=== PATIENT | female | born 1955 ===

== ENCOUNTER 2019-07-26 11:32 | Emergency (ER) | payer OTHER, SELFPAY ==
[2019-07-26 11:35] VITALS: BMI 23.3
--- NOTE | 2019-07-26 11:39 | DI.RAD.S_ITS ---
PROCEDURE: XR CHEST 1V INDICATIONS: chest pain TECHNIQUE: One view of the chest was acquired. COMPARISON: None. FINDINGS: Surgical changes and devices: None. Lungs and pleura: Lungs are clear. No pleural effusions or pneumothorax. Mediastinum: Mediastinal contours appear normal. Heart size is normal. Bones and chest wall: No suspicious bony lesions. Overlying soft tissues appear unremarkable. IMPRESSION: No acute cardiopulmonary disease process. Dictated by: Sandi Mathews MD, PhD on 07/26/2019 at 12:10 Approved by: Sandi Mathews MD, PhD on 07/26/2019 at 12:10
--- NOTE | 2019-07-26 11:46 | ED.CHESTPAIN ---
HPI - Chest Pain General Chief Complaint: Chest Pain Stated Complaint: chest pain Time Seen by Provider: 07/26/19 11:46 Source: patient Mode of arrival: Ambulatory Limitations: no limitations History of Present Illness HPI narrative: CC: Chest pain that feels better leaning forward. HPI: The patient is a 64-year-old female who has a history of WPW status post ablation several years ago who presents to the emergency department at this time with chest pain. The patient stated that she has WPW a which was ablated in 1998. She has not had any significant tachycardia since then. The patient states that she has had a chest discomfort for the last 3 nights for which she has taken Tums without relief. When the pain seemed to travel from her right ear and jaw to the middle of her to chin she, she came into the emergency department to be evaluated. She states that she has had a sharp knife-like pain in the middle of her back between her shoulder blades that radiates anteriorly to the center of her chest. The pain is always constant varying in intensity and is almost always sharp and rarely dull or achy. She has had no significant arm discomfort shoulder discomfort. She states it is hard to describe it just hurts. She has had no fall or injury. She has never had a pulmonary embolism. She denies any significant shortness of breath but has had a mild dry unproductive cough. She denies any fever chills or sweats any belly pain nausea vomiting diarrhea. She is constipated most of the time. She does not have a history of pancreatitis. She denies that she has ever been told that she has had pericarditis but the pain is significantly relieved by leaning forward. She does not smoke cigarettes but drinks white wine daily. Related Data Home Medications Medication Instructions Recorded Confirmed Vitamin B-12 1 tab PO DAILY 07/26/19 07/26/19 estradiol 10 mcg VAGINAL DIRECTED 07/26/19 07/26/19 estradiol [Marisa] 0.0375 mg TOPICAL DIRECTED 07/26/19 07/26/19 levothyroxine 75 mcg PO DAILY 07/26/19 07/26/19 liothyronine 2.5 mcg PO DAILY 07/26/19 07/26/19 magnesium 1 tab PO DAILY 07/26/19 07/26/19 miglitol 25 - 50 mg PO TID 07/26/19 07/26/19 naltrexone 50 mg PO BID 07/26/19 07/26/19 pramlintide [SymlinPen 60] 60 mcg SUBCUT QAC 07/26/19 07/26/19 rosuvastatin 40 mg PO QPM 07/26/19 07/26/19 zonisamide 100 mg PO QAM 07/26/19 07/26/19 zonisamide 150 mg PO QPM 07/26/19 07/26/19 Previous Rx's Medication Instructions Recorded cyclobenzaprine 10 mg PO TID PRN #15 tab 07/26/19 naproxen 500 mg PO BID PRN #20 tab 07/26/19 Allergies Allergy/AdvReac Type Severity Reaction Status Date / Time levofloxacin [From Levaquin] Allergy Severe painful/itc Verified 07/26/19 11:42 hy Review of Systems Review of Systems Narrative: Her review of systems were negative except for those mentioned in the history of present illness. Patient History Social History Smoking Status: Never smoker Smoking Status: Never smoker alcohol intake frequency: 0-2 drinks per day Substance Use Type: does not use Exam Narrative Exam Narrative: PHYSICAL EXAM: CONSTITUTIONAL: Awake, Alert, Oriented, Coherent, Cooperative in NAD. Does not appear toxic or ill. HEAD: AT/NC EENT: PERRL, FROM of eyes, no discharge, no nystagmus No drainage from the ears, Tympanic membranes intact bilaterally, clear EAC Oral mucosa is moist and pink, posterior pharynx is without erythema or exudate. NECK: Supple, no obvious JVD, Trachea is midline without stridor, no palpable LN or masses. SPINE: No gross deformity, no palpable tenderness of the cervical, thoracic, lumbar or sacral spine. No CVA tenderness. THORAX: No deformity, retractions, chest wall tenderness, subcutaneous air or crepitice. There is no pain or discomfort on AP compression of the right and left chest. LUNGS: Clear with symmetrical breath sounds without respiratory distress HEART: Normal heart tones, regular rhythm and rate without murmur. ABDOMEN: Soft, non-tender, normal bowel sounds without guarding, rebound, rigidity or palpable mass EXTREMITIES: No edema, cyanosis, deformity or tenderness. SKIN: No rash, bruising, petechiae or purpura. NEURO: Awake, alert, oriented, conversive, cranial nerves II-XII are symmetrical and normal, moves all 4 extremities and is ambulatory Initial Vital Signs Initial Vital Signs: Vital Signs Pulse Rate 61 07/26/19 12:00 Respiratory Rate 22 07/26/19 12:00 Blood Pressure 140/67 07/26/19 12:00 Pulse Oximetry 100 07/26/19 12:00 Course Course Course Narrative: The patient's pain would be a rare atypical presentation of coronary heart disease. Because she has pain that originates in the middle of her back and radiates anteriorly a CT angiogram of the patient's chest has been ordered to rule out the possibility of a dissecting aortic aneurysm. This will also rule out the possibility T of a pulmonary embolism or any other infiltrates. The patient is being evaluated for all of these possible pathological processes including pancreatitis. 1307: The patient's single-view chest x-ray reveals no acute cardiopulmonary pathology. The patient's CT angiogram has been completed but results remain pending. 1340: The patient's CT angiogram of her chest reveals: 1. No acute aortic aneurysm, dissection, syndrome. 2. No central pulmonary embolism 3. No acute airspace opacity. 1400: The patient was feeling much improved and only received aspirin. She declined the Toradol for her pain and discomfort. She was informed of the CT results. A repeat troponin has been ordered on the patient. The patient's ESR and CRP are not elevated. 1442: The patient's repeat troponin is negative. The patient is in no acute distress. I discussed the options with the patient. She was advised to still see her for primary care physician and plush brusher for a possible outpatient stress test. I explained to her that I think that this is 1 of 2 things either musculoskeletal back and chest pain or a atypical presentation of indigestion heartburn. She was instructed to use a large enough volume of Gaviscon Mylanta or liquid antacid when she believes that this may be indigestion heartburn. I suggested using a half to a full bathroom [place] cup full of antacid as a single attempt to neutralize the acid in her stomach. She will be prescribed Naprosyn for the pain and discomfort and cyclobenzaprine as a muscle relaxant. Orders Ordered: Discontinued Medications Aspirin (Aspirin Chew) 324 mg PO NOW ONE Stop: 07/26/19 11:40 Last Admin: 07/26/19 11:47 Dose: 324 mg Documented by: CEE Ketorolac Tromethamine (Toradol) 30 mg IV NOW ONE Stop: 07/26/19 11:46 Last Admin: 07/26/19 13:17 Dose: Not Given Documented by: SYED Vital Signs Vital signs: Vital Signs - 8 hr 07/26/19 12:00 07/26/19 12:29 07/26/19 13:58 Temperature 97.2 F L Pulse Rate 61 54 L Respiratory Rate 22 18 Blood Pressure [Right Arm] 140/67 138/71 Pulse Oximetry 100 99 MDM - Chest Pain Lab Data Result diagrams: 07/26/19 11:55 07/26/19 12:27 Labs: Lab Results 07/26/19 07/26/19 07/26/19 Range/Units 11:55 11:55 11:55 WBC 5.3 (4.5-11.0) X10^3/uL RBC 4.87 (4.0-5.2) X10^6/uL Hgb 14.7 (12.0-16.0) g/dL Hct 44.0 (36-46) % MCV 90.3 (80-100) fL MCH 30.2 (26-34) PG MCHC 33.5 (30-36) % RDW 12.8 (11.6-14.8) % Plt Count 222 (150-400) X10^3/uL Neut % (Auto) 51.3 (50-75) % Lymph % (Auto) 34.9 (25-40) % [place] % (Auto) 9.1 (3-14) % Eos % (Auto) 4.0 (2-4) % Baso % (Auto) 0.7 (0-2) % Neut # (Auto) 2700 (2537-9646) /uL Lymph # (Auto) 1800 (7633-6703) /uL [place] # (Auto) 500 (0-900) /uL Eos # (Auto) 200 (0-450) /uL Baso # (Auto) 0 (0-100) /uL ESR 3 (0-20) MM/HR PT 10.4 (10.1-12.7) SECONDS INR 0.9 (0.9-1.3) APTT 32 (26.4-36.2) SECONDS Sodium (137-145) mmol/L Potassium (3.4-5.1) mmol/L Chloride (98-107) mmol/L Carbon Dioxide (22-32) mmol/L BUN (7-17) mg/dL Creatinine (0.52-1.04) mg/dL Estimated GFR (>60) mL/min BUN/Creatinine Ratio (6-22) Glucose (80-110) mg/dL Calcium (8.4-10.2) mg/dL Magnesium (1.6-2.3) mg/dL Total Bilirubin (0.2-1.3) mg/dL AST (14-36) IU/L ALT (<35) IU/L Alkaline Phosphatase (38-126) U/L Total Creatine Kinase (30-135) U/L CK-MB (CK-2) (<2.37) ng/mL CK-MB (CK-2) Rel Index (1.5-5.0) % Troponin I (0.01-0.034) ng/mL C-Reactive Protein (<1.0) mg/dL Total Protein (6.3-8.2) g/dL Albumin (3.5-5.0) g/dL Globulin (1.7-4.1) g/dL Albumin/Globulin Ratio (1.0-2.8) Lipase (23-300) U/L 07/26/19 07/26/19 07/26/19 Range/Units 12:21 12:27 13:58 WBC (4.5-11.0) X10^3/uL RBC (4.0-5.2) X10^6/uL Hgb (12.0-16.0) g/dL Hct (36-46) % MCV (80-100) fL MCH (26-34) PG MCHC (30-36) % RDW (11.6-14.8) % Plt Count (150-400) X10^3/uL Neut % (Auto) (50-75) % Lymph % (Auto) (25-40) % [place] % (Auto) (3-14) % Eos % (Auto) (2-4) % Baso % (Auto) (0-2) % Neut # (Auto) (3279-4409) /uL Lymph # (Auto) (6184-1151) /uL [place] # (Auto) (0-900) /uL Eos # (Auto) (0-450) /uL Baso # (Auto) (0-100) /uL ESR (0-20) MM/HR PT (10.1-12.7) SECONDS INR (0.9-1.3) APTT (26.4-36.2) SECONDS Sodium 140 (137-145) mmol/L Potassium 4.1 (3.4-5.1) mmol/L Chloride 104 (98-107) mmol/L Carbon Dioxide 26 (22-32) mmol/L BUN 21 H (7-17) mg/dL Creatinine 0.80 (0.52-1.04) mg/dL Estimated GFR > 60.0 (>60) mL/min BUN/Creatinine Ratio 26.3 H (6-22) Glucose 96 (80-110) mg/dL Calcium 9.3 (8.4-10.2) mg/dL Magnesium 2.2 (1.6-2.3) mg/dL Total Bilirubin 0.4 (0.2-1.3) mg/dL AST 34 (14-36) IU/L ALT 31 (<35) IU/L Alkaline Phosphatase 55 (38-126) U/L Total Creatine Kinase 145 H (30-135) U/L CK-MB (CK-2) 1.20 (<2.37) ng/mL CK-MB (CK-2) Rel Index 0.8 L (1.5-5.0) % Troponin I < 0.012 < 0.012 (0.01-0.034) ng/mL C-Reactive Protein < 0.5 (<1.0) mg/dL Total Protein 8.0 (6.3-8.2) g/dL Albumin 4.9 (3.5-5.0) g/dL Globulin 3.1 (1.7-4.1) g/dL Albumin/Globulin Ratio 1.6 (1.0-2.8) Lipase 119 (23-300) U/L ECG Data Attestation: I personally reviewed and interpreted this ECG as follows: Interpretation: The patient's EKG obtained on July 26 at 11:3 9:06 a.m. reveals a sinus bradycardia with ventricular rate of 58. QRS is slightly prolonged at 104 milliseconds. QTC interval and QTC are within normal limits. The patient has normal axis. The patient's EKG reveals a inverted T-wave in lead III and V1. There are no other acute diagnostic ST segment changes noted throughout her EKG. Discharge Plan Departure Patient Disposition: Home Clinical Impression: Atypical chest pain, History of Jjybw-Ihjtjqmcu-Jffqi syndrome Acute thoracic back pain Qualifiers: Back pain laterality: midline Qualified Code(s): M54.6 - Pain in thoracic spine Discharge Date/Time: 07/26/19 15:01 Instructions: DI for Angina, DI for Atypical Chest Pain, DI for Thoracic Back Pain Activity Restrictions/Additional Instructions: 1. Follow-up with your primary care physician to be referred to your plush brusher for an evaluation and possible of repeat cardiac stress test. 2. If you are having any burning discomfort or feel that this may be indigestion or heartburn take a half to a full bathroom [place] cups volume of a liquid antacid such as Gaviscon or Mylanta Maalox. You need to take a large enough volume to neutralize the acid in your stomach acutely as a 1 time dose. 3. Use the Naprosyn as prescribed 500 mg twice a day for pain and discomfort. 4. Use the cyclobenzaprine 10 mg 3 times a day as needed for persistent pain and discomfort and muscle spasms or cramps. 5. If you develop crushing chest pain that radiates into your neck jaw or shoulder and arm associated with dizziness shortness of breath feeling faint you need to repeat turned to the emergency department immediately. Prescriptions: New naproxen 500 mg tablet 500 mg PO BID PRN (Reason: pain) Qty: 20 RF: 0 cyclobenzaprine 10 mg tablet 10 mg PO TID PRN (Reason: muscle spasm) Qty: 15 RF: 0 No Action miglitol 50 mg tablet 25 - 50 mg PO TID RF: 0 naltrexone 50 mg tablet 50 mg PO BID RF: 0 liothyronine 5 mcg tablet 2.5 mcg PO DAILY RF: 0 levothyroxine 75 mcg tablet 75 mcg PO DAILY RF: 0 estradiol [Marisa] 0.0375 mg/24 hr patch semiweekly 0.0375 mg topical DIRECTED RF: 0 rosuvastatin 40 mg tablet 40 mg PO QPM RF: 0 zonisamide 50 mg capsule 100 mg PO QAM RF: 0 estradiol 10 mcg tablet 10 mcg VAGINAL DIRECTED RF: 0 Vitamin B-12 1 tab PO DAILY RF: 0 magnesium 1 tab PO DAILY RF: 0 zonisamide 50 mg capsule 150 mg PO QPM RF: 0 SymlinPen 60 1,500 mcg/1.5 mL Pen Injector 60 mcg SUBCUT QAC RF: 0
[2019-07-26] MEDS: ASPIRIN 81 MG CHEW TAB 324 MG PO (11:47)
[2019-07-26 12:00] VITALS: BP 140/67; PULSE 61; RESP 22; O2SAT 100
[2019-07-26 12:09] LABS: INR 0.9 (0.9-1.3); Prothrombin Time 10.4 SECONDS (10.1-12.7)
[2019-07-26 12:12] LABS: PTT Partial Thromboplastin Tim 32 SECONDS (26.4-36.2)
[2019-07-26 12:14] LABS: Add Manual Diff / Slide Review NO; Basophils Absolute Auto 0 /uL (0-100); Basophils Percent Auto 0.7 % (0-2); Eosinophils Absolute Auto 200 /uL (0-450); Hemoglobin 14.7 g/dL (12.0-16.0); Lymphocytes Absolute Auto 1800 /uL (1100-4500); Lymphocytes Percent Auto 34.9 % (25-40); Mean Corpuscular HGB Conc 33.5 % (30-36); Mean Corpuscular Hemoglobin 30.2 PG (26-34); Mean Corpuscular Volume 90.3 fL (80-100); Monocytes Absolute Auto 500 /uL (0-900); Monocytes Percent Auto 9.1 % (3-14); Neutrophils Absolute Auto 2700 /uL (1500-7000); Neutrophils Percent Auto 51.3 % (50-75); Platelet Count 222 X10^3/uL (150-400); Red Blood Cell Count 4.87 X10^6/uL (4.0-5.2); Red Cell Distribution Width 12.8 % (11.6-14.8); White Blood Cell Count 5.3 X10^3/uL (4.5-11.0)
[2019-07-26 12:29] VITALS: TEMP 36.2
[2019-07-26 12:31] LABS: Erythrocyte Sedimentation Rate 3 MM/HR (0-20)
[2019-07-26 12:41] LABS: Alanine Aminotransferase 31 IU/L (<35); Albumin 4.9 g/dL (3.5-5.0); Albumin Globulin Ratio 1.6 (1.0-2.8); Alkaline Phosphatase 55 U/L (38-126); Aspartate Aminotransferase 34 IU/L (14-36); BUN Creatinine Ratio 26.3 (6-22); Bilirubin Total 0.4 mg/dL (0.2-1.3); Blood Urea Nitrogen 21 mg/dL (7-17); Calcium 9.3 mg/dL (8.4-10.2); Carbon Dioxide 26 mmol/L (22-32); Chloride 104 mmol/L (98-107); Creatine Kinase 145 U/L (30-135); Estimated Glomerular Filt Rate > 60.0 mL/min (>60); Globulin 3.1 g/dL (1.7-4.1); Glucose 96 mg/dL (80-110); HEMOLYSIS < 15 (0-50); Lipase 119 U/L (23-300); Magnesium 2.2 mg/dL (1.6-2.3); Potassium 4.1 mmol/L (3.4-5.1); Sodium 140 mmol/L (137-145)
--- NOTE | 2019-07-26 12:41 | DI.CT.S_ITS ---
PROCEDURE: CT ANGIO CHEST INDICATIONS: mid posterior thoracic pain radiating to chest, r/o disectio TECHNIQUE: After the administration of intravenous contrast, 2.5 mm thick sections acquired from the lung apices to the posterior lung bases. Maximum intensity projection (MIP) oblique sagittal reformats were then acquired parallel to the aortic arch. For radiation dose reduction, the following was used: automated exposure control. COMPARISON: None. FINDINGS: Image quality: Excellent. Aorta: Aorta and great vessels are normal in size. No mural irregularity or contrast extravasation to suggest aortic injury. No central pulmonary embolism. Mediastinum: No hematomas. Heart size is normal. No pericardial effusion. No mediastinal or hilar adenopathy by size criteria. Central pulmonary arteries are normal in size. Esophagus is normal in caliber. No hiatal hernia. Lungs and pleura: No acute airspace opacities. Calcified granuloma in the left upper lobe. No pleural effusions or pneumothorax. Central and peripheral airways are patent and normal in caliber. Bones and chest wall: No axillary adenopathy by size criteria. Thyroid gland is unremarkable. No suspicious bony lesions. No vertebral body compression fractures. Abdomen: Visualized upper abdominal solid organs and bowel loops appear normal. IMPRESSION: 1. No acute aortic syndrome. 2. No central pulmonary embolism. 3. No acute airspace opacity. Dictated by: Peewee Parrish M.D. on 07/26/2019 at 13:14 Approved by: Peewee Parrish M.D. on 07/26/2019 at 13:21
[2019-07-26 12:47] LABS: C-Reactive Protein Quant < 0.5 mg/dL (<1.0)
[2019-07-26 12:53] LABS: Troponin I < 0.012 ng/mL (0.01-0.034)
[2019-07-26 12:56] LABS: CKMB % Relative Index 0.8 % (1.5-5.0)
[2019-07-26 13:58] VITALS: BP 138/71; PULSE 54; RESP 18; O2SAT 99
[2019-07-26 14:29] LABS: Troponin I < 0.012 ng/mL (0.01-0.034)
[2019-07-26 14:30] VITALS: BP 118/67; PULSE 57; RESP 16; O2SAT 100
[2019-07-26 14:58] VITALS: BP 118/67; PULSE 57; O2SAT 100
== END 2019-07-26 15:01 | disposition home or self-care (01) ==
PROVIDERS: Emergency Provider Emergency Medicine
DX: M54.6 Pain in thoracic spine (principal); R07.89 Other chest pain; Z86.79 Personal history of other diseases of the circulatory system
CPT/HCPCS: 36415; 71045; 71275; 80053; 82550; 82553; 83690; 83735; 84484; 85025; 85610; 85651; 85730; 86140; 93005; 99284; 99285; Q9967

== ENCOUNTER → 2020-08-20 09:26 | Outpatient (CLI) | payer OTHER, SELFPAY ==
[2020-08-20] MEDS: COVID-19 VACC, Ad26(JANSSEN)/PF 0.5 ML IM (09:32)
== END ==
PROVIDERS: Visit Provider Internal Medicine
DX: Z23 Encounter for immunization (principal)
CPT/HCPCS: 0031A; 91303

== ENCOUNTER → 2021-03-24 11:46 | Outpatient (CLI) | payer OTHER, SELFPAY ==
--- NOTE | 2021-03-24 11:48 | DI.MG.S_ITS ---
BILATERAL DIGITAL SCREENING MAMMOGRAM 3D/2D WITH CAD: 03/24/2021 CLINICAL: Routine screening. Family history of breast cancer. Comparison is made to exams dated: 11/11/2019 mammogram, 11/11/2019 ultrasound, 10/14/2019 mammogram, 09/19/2018 mammogram, and 07/19/2017 mammogram - outside facility. The tissue of both breasts is predominantly fatty. Current study was also evaluated with a Computer Aided Detection (CAD) system. No significant masses, calcifications, or other findings are seen in either breast. There has been no significant interval change. IMPRESSION: NEGATIVE There is no mammographic evidence of malignancy. A 1 year screening mammogram is recommended. This exam was interpreted at Station ID: [id number]. NOTE: For mammograms, a report in lay terms will be sent to the patient. Approximately 15% of breast malignancies will not be visualized mammographically. In the management of a palpable breast mass, a negative mammogram must not discourage biopsy of a clinically suspicious lesion. Electronically Signed By: Quinton Carrera M.D., jr/edwar:03/24/2021 12:49:09 letter sent: Normal Exam ACR BI-RADS Category 1: Negative [id number]
== END ==
PROVIDERS: PCP Registered Nurse; Referring Provider Obstetrics & Gynecology; Visit Provider Obstetrics & Gynecology
DX: Z12.31 Encounter for screening mammogram for malignant neoplasm of breast (principal); Z80.3 Family history of malignant neoplasm of breast
CPT/HCPCS: 77063; 77067

== ENCOUNTER → 2021-07-01 17:18 | Outpatient (CLI) | payer MEDICARE, OTHER, SELFPAY ==
--- NOTE | 2021-07-01 17:20 | DI.RAD.S_ITS ---
PROCEDURE: XR LUMBAR SPINE 2-3V INDICATIONS: back pain and bilateral leg numbness TECHNIQUE: 3 views of the lumbar spine were acquired. COMPARISON: None. FINDINGS: Bones: 5 [id number] vertebrae are present. There is normal bony alignment. Degenerative endplate changes are noted throughout lumbar spine with significant loss of disc height at L2-3 level. No vertebral body compression fractures. No suspicious bony lesions. Soft tissues: Overlying bowel gas pattern is normal. No suspicious soft tissue calcifications. IMPRESSION: Degenerative disc disease throughout lumbar spine. No acute compression fracture or spondylolisthesis. Dictated by: Yair Schuler M.D. on 07/01/2021 at 20:48 Approved by: Yair Schuler M.D. on 07/01/2021 at 20:48
== END ==
PROVIDERS: PCP Family Medicine; Referring Provider Family Medicine; Visit Provider Family Medicine
DX: M54.9 Dorsalgia, unspecified (principal); E16.2 Hypoglycemia, unspecified; E03.9 Hypothyroidism, unspecified; R00.2 Palpitations; M51.36 Other intervertebral disc degeneration, lumbar region; R20.0 Anesthesia of skin
CPT/HCPCS: 72100

== ENCOUNTER → 2021-07-09 13:47 | Outpatient (CLI) | payer MEDICARE, OTHER, SELFPAY ==
--- NOTE | 2021-07-09 13:51 | DI.MRI.S_ITS ---
PROCEDURE: MR LUMBAR SPINE WO CON INDICATIONS: back pain and bilateral leg numbness TECHNIQUE: Noncontrast sagittal T1 spin echo and T2 fast echo, sagittal STIR, axial T1 and T2 fast spin echo through the lumbar spine. In cases with scoliosis, additional coronal T2 fast spin echo may be performed. COMPARISON: [facility], CR, XR LUMBAR SPINE 2-3V, 07/01/2021, 17:13. FINDINGS: Image quality: Excellent. Alignment and Curvature: There is normal bony alignment. Bone Marrow: Marrow is of normal overall signal. No acute vertebral body compression fractures. Spinal Cord: Conus medullaris terminates at the L1-L2 level. Visualized cord demonstrates normal signal and size. Paraspinous Soft Tissues: No paravertebral masses. T12-L1: Normal appearance. L1-L2: Normal appearance. L2-L3: At least moderate loss of disc height and disc signal can be seen. Moderate disc bulge is seen, with a central disc protrusion. Mild to moderate facet hypertrophy can be seen. Mild bilateral neural foraminal narrowing is seen. Mild central canal narrowing is seen. L3-L4: Ewvz-sh-ssbexluk loss of disc height and disc signal can be seen. Mild to moderate disc bulge is seen, which is eccentric the left. There is moderate left-sided and no right-sided neural foraminal narrowing. No significant central canal narrowing is seen. L4-L5: The disc height is well-preserved. Loss of disc signal is seen at this level. Moderate disc bulge is seen. There is a superimposed central disc protrusion. Mild to moderate facet hypertrophy is seen. There is xeyy-pv-uyrsdzzw right-sided and mild left-sided neural foraminal narrowing. Mild to moderate central canal narrowing is seen. L5-S1: Normal appearance. Prominent apparent Schmorl's nodes can be seen at the S2 level. IMPRESSION: Lumbar spine degenerative changes are seen, which are worst at L2-L3 and L3-L4. Prominent presumed Schmorl's nodes can be seen at the S2 level. Dictated by: Maksim Walker M.D. on 07/09/2021 at 15:34 Approved by: Maksim Walker M.D. on 07/09/2021 at 15:38
== END ==
PROVIDERS: PCP Family Medicine; Referring Provider Family Medicine; Visit Provider Family Medicine
DX: M47.816 Spondylosis without myelopathy or radiculopathy, lumbar region (principal); M54.9 Dorsalgia, unspecified; R20.0 Anesthesia of skin; R00.2 Palpitations; E03.9 Hypothyroidism, unspecified; E16.2 Hypoglycemia, unspecified
CPT/HCPCS: 72148

== ENCOUNTER → 2021-10-18 12:30 | Outpatient (CLI) | payer MEDICARE, OTHER, SELFPAY ==
--- NOTE | 2021-10-18 | DI.US.S_ITS ---
LIMITED ULTRASOUND OF LEFT BREAST: 10/18/2021 CLINICAL: Skin changes. Skin dimpling. No prior exams were available for comparison. Color flow and real-time ultrasound of the left breast 2-4 o'clock region were performed. Olguin scale images of the real-time examination were reviewed. Ultrasound of the left breast in the 2:00 to 4:00 region in the area of dimpling demonstrates normal breast tissue with no solid mass or cyst. IMPRESSION: INCOMPLETE: NEEDS ADDITIONAL IMAGING EVALUATION There are no abnormalities seen in the left breast to correspond with the areas of clinical concern at 2, 3, and 4 o'clock, however given new skin dimpling in this location, breast MRI is recommended. This exam was interpreted at Station ID: [id number]. Electronically Signed By: Jak Crump acr/:10/18/2021 14:22:04 letter sent: Additional Imaging Needed Ultrasound BI-RADS: 0 Indeterminate
--- NOTE | 2021-10-18 | DI.MG.S_ITS ---
UNILATERAL LEFT DIGITAL DIAGNOSTIC MAMMOGRAM 3D/2D: 10/18/2021 CLINICAL: Left breast changes. Comparison is made to exams dated: 03/24/2021 mammogram - [facility], 11/11/2019 mammogram, 10/14/2019 mammogram, and 09/19/2018 mammogram - outside facility. The tissue of left breast is predominantly fatty. No significant masses, calcifications, or other findings are seen in the breast. IMPRESSION: INCOMPLETE: NEEDS ADDITIONAL IMAGING EVALUATION There is no abnormality seen in the left breast to correspond with the area of clinical concern and skin retraction in the upper outer quadrant, however, ultrasound is recommended. US will be performed and dictated separately. Future imaging is recommended as follows: 03/25/2022 screening mammogram. This exam was interpreted at Station ID: [id number]. NOTE: For mammograms, a report in lay terms will be sent to the patient. Approximately 15% of breast malignancies will not be visualized mammographically. In the management of a palpable breast mass, a negative mammogram must not discourage biopsy of a clinically suspicious lesion. Electronically Signed By: Jak Crump acr/:10/18/2021 13:23:28 ACR BI-RADS Category 0: Incomplete [id number]
== END ==
PROVIDERS: PCP Family Medicine; Referring Provider Obstetrics & Gynecology; Visit Provider Obstetrics & Gynecology
DX: N64.89 Other specified disorders of breast (principal); R92.2 Inconclusive mammogram
CPT/HCPCS: 76642; 77065; G0279

== ENCOUNTER → 2021-12-10 08:43 | Outpatient (CLI) | payer MEDICARE, OTHER, SELFPAY ==
--- NOTE | 2021-12-10 | DI.MRI.S_ITS ---
BREAST MRI OF BOTH BREASTS: 12/10/2021 CLINICAL: Abnormal US and skin dimpling. PROCEDURE: MR BREAST BI WO/W CON INDICATIONS: ABNORMAL US AND MAMMO/SKIN DIMPLING TECHNIQUE: The patient was placed prone in a dedicated breast imaging coil. Precontrast axial STIR and 3D FLASH without fat saturation sequences were obtained. Both before and after bolus injection of contrast, sequential 1-minute axial 3D FLASH with fat saturation sequences for 3 time points, with subtraction images and maximum intensity projections (MIP's) generated. Delayed sagittal FLASH images with fat saturation were also obtained. Computer-aided detection, including computer algorithm analysis of MRI image data for lesion detection and characterization, pharmacokinetic analysis, with further physician review for interpretation, was performed. COMPARISON: [facility], , MM DIAGNOSTIC MAMMO UNILAT LT, 10/18/2021, 12:56. [facility], US, US BREAST LT LIMITED, 10/18/2021, 14:59. FINDINGS: Image quality: Excellent. There is minimal background parenchymal enhancement. Right breast: No suspicious mass lesions or abnormal enhancement. Left breast: No suspicious mass lesions or abnormal enhancement. No architectural distortion or tethering of the breast parenchyma or the overlying skin. Miscellaneous: No axillary or intramammary adenopathy. Limited visualization of the heart, lungs, and upper abdomen is unremarkable. IMPRESSION: NEGATIVE 1. No suspicious mass lesions or abnormal enhancement in the bilateral breasts. No findings to explain new dimpling within the lateral aspect of the left breast. Clinical follow up recommended. Return to annual mammogram screening schedule is recommended. This exam was interpreted at Station ID: [id number]. Electronically Signed By: Janelle holly/:12/10/2021 12:02:28 letter sent: Clinical Evaluation ACR BI-RADS Category 1: Negative [id number]
== END ==
PROVIDERS: PCP Family Medicine; Referring Provider Obstetrics & Gynecology; Visit Provider Obstetrics & Gynecology
DX: R92.8 Other abnormal and inconclusive findings on diagnostic imaging of breast (principal); N64.59 Other signs and symptoms in breast
CPT/HCPCS: 77049; A9579

== ENCOUNTER → 2022-01-24 10:43 | Outpatient (CLI) | payer MEDICARE, OTHER, SELFPAY ==
--- NOTE | 2022-01-24 10:44 | DI.RAD.S_ITS ---
PROCEDURE: XR HIP W PEL IF DONE RT 2V INDICATIONS: right hip pain TECHNIQUE: Frontal view of the pelvis, lateral view of the right hip. COMPARISON: None. FINDINGS: Bones: No fractures or dislocations. No suspicious bony lesions. The visualized pelvic ring appears intact. Soft tissues: No suspicious soft tissue calcifications or masses. IMPRESSION: 1. No acute fracture visualized. 2. No definite or substantial right hip degenerative changes visualized radiographically. 3. If symptoms persist, follow-up radiographs and/or CT or MRI may be helpful for further evaluation. Dictated by: Martin Pena M.D. on 01/24/2022 at 13:11 Approved by: Martin Pena M.D. on 01/24/2022 at 13:14
== END ==
PROVIDERS: PCP Family Medicine; Referring Provider Family Medicine; Visit Provider Family Medicine
DX: M25.551 Pain in right hip (principal); M54.41 Lumbago with sciatica, right side; M19.90 Unspecified osteoarthritis, unspecified site; R20.0 Anesthesia of skin; G89.29 Other chronic pain
CPT/HCPCS: 73502

== ENCOUNTER → 2022-03-25 10:52 | Outpatient (CLI) | payer MEDICARE, OTHER, SELFPAY ==
--- NOTE | 2022-03-25 | DI.MRI.S_ITS ---
PROCEDURE: MR LUMBAR SPINE WO CON INDICATIONS: SPINAL STENOSIS TECHNIQUE: Noncontrast sagittal T1 spin echo and T2 fast echo, sagittal STIR, and T2 fast spin echo through the lumbar spine. In cases with scoliosis, additional coronal T2 fast spin echo may be performed. COMPARISON: [facility], MR, MR LUMBAR SPINE WO CON, 07/09/2021, 14:27. FINDINGS: Image quality: Excellent. Alignment and Curvature: There is normal bony alignment. Bone Marrow: Marrow is of normal overall signal. Increased T1 and T2 signal is present at L2 suggestive of hemangioma. Moderate reactive endplate changes are present at L2-3, L3-4. No acute vertebral body compression fractures. Spinal Cord: Conus medullaris terminates at the L2 level. Visualized cord demonstrates normal signal and size. 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 Paraspinous Soft Tissues: No paravertebral masses. Discs: Fiey-xh-itbidtxb multilevel disc desiccation is present most severe at L2-3, L3-4. L1-L2: No disc bulge, spinal stenosis or foraminal narrowing. No interval change. L2-L3: Mild disc bulge with minimal canal narrowing. Mild bilateral foraminal narrowing. Facet and ligamentum flavum hypertrophy are present. No interval change. L3-L4: Mild disc bulge without spinal stenosis. Ucmd-bw-kdofxmls right foraminal narrowing with facet and ligamentum flavum hypertrophy. No interval change. L4-L5: Mild disc bulge with txqt-cf-tpxsrolj spinal stenosis. Ipem-lz-oqvkwwpd right and mild left foraminal narrowing with facet and ligamentum flavum hypertrophy. No interval change. L5-S1: No disc bulge, spinal stenosis or foraminal narrowing. No interval change. IMPRESSION: Multilevel degenerative changes stable compared to prior exam on 07/09/2021. Dictated by: Emy Edge M.D. on 03/25/2022 at 17:00 Approved by: Emy Edge M.D. on 03/25/2022 at 17:03
--- NOTE | 2022-03-25 | DI.MG.S_ITS ---
BILATERAL DIGITAL SCREENING MAMMOGRAM 3D/2D WITH CAD: 03/25/2022 CLINICAL: Routine screening. Family history of breast cancer. Comparison is made to exams dated: 12/10/2021 breast MRI, 10/18/2021 ultrasound, 10/18/2021 mammogram, 03/24/2021 mammogram - [facility], and 11/11/2019 mammogram - outside facility. There are scattered areas of fibroglandular density in both breasts (category b / 25%-50% glandular tissue). Current study was also evaluated with a Computer Aided Detection (CAD) system. There are benign vascular calcifications in the right breast. No significant masses, calcifications, or other findings are seen in either breast. There has been no significant interval change. IMPRESSION: BENIGN There is no mammographic evidence of malignancy. A 1 year screening mammogram is recommended. Based on the Tyrer Cuzick model (a risk assessment model) the patient's lifetime risk is 5.7% and her 10 year risk is 2.7%. According to the ACR, ACS, and NCCN guidelines, an annual breast MRI exam along with mammogram is recommended if the patient's lifetime risk is 20% or greater. This exam was interpreted at Station ID: [id number]. NOTE: For mammograms, a report in lay terms will be sent to the patient. Approximately 15% of breast malignancies will not be visualized mammographically. In the management of a palpable breast mass, a negative mammogram must not discourage biopsy of a clinically suspicious lesion. Electronically Signed By: Emily rasheed/edwar:03/25/2022 12:23:18 letter sent: Normal Exam ACR BI-RADS Category 2: Benign Finding(s) 3342F
== END ==
PROVIDERS: PCP Family Medicine; Referring Provider Physical Medicine & Rehabilitation; Visit Provider Physical Medicine & Rehabilitation
DX: Z80.3 Family history of malignant neoplasm of breast (principal); Z12.31 Encounter for screening mammogram for malignant neoplasm of breast; M48.062 Spinal stenosis, lumbar region with neurogenic claudication; M47.816 Spondylosis without myelopathy or radiculopathy, lumbar region
CPT/HCPCS: 72148; 77063; 77067

== ENCOUNTER 2023-03-22 15:20 | Emergency (ER) | payer MEDICARE, OTHER, SELFPAY ==
[2023-03-22 15:25] VITALS: BP 156/70; PULSE 67; RESP 18; TEMP 36.8; O2SAT 100; BMI 24.2
--- NOTE | 2023-03-22 18:06 | ED.EYEPROB ---
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 Patient states about 25 years ago she had an ocular migraine. She states in the last week she is had 2 episodes the 1st about a week ago where she had some vision change that lasted a couple minutes and then resolved. She states it just seemed different, today she had another episode that lasted 3 or 4 minutes. She states it was localized her right eye when she covered her left eye it was present when she covers her right eye resolved and she can see normally. She states the lower portion of her eye had sort of a white spot that was fuzzy. She states she has a little bit of discomfort in the upper posterior eye. No trauma injury or other changes. She states it resolved on its own. She has not had any additional episodes. Patient states she has not had any similar issues accept for last week but she did not appreciate this specific change at that time because she did not cover up her eyes. She does wear glasses, she has had Lasix remotely. She does not wear contacts. She has not had any drainage redness or other changes. She denies any difficulty with speech, facial droop, numbness, difficulty with movement or other acute changes. She states no other symptoms. She has seen ophthalmology locally in the last year but not recently. She has been told that she has cataracts but has not had any intervention for them. Related Data Home Medications Medication Instructions Recorded Confirmed Vitamin B-12 1 tab PO DAILY 07/26/19 06/14/22 estradiol 0.0375 mg/24 hr 0.0375 mg topical DIRECTED 07/26/19 06/14/22 semiweekly transdermal patch (Marisa) estradiol 10 mcg vaginal tablet 10 mcg vaginal DIRECTED 07/26/19 06/14/22 levothyroxine 75 mcg tablet 75 mcg PO DAILY 07/26/19 06/14/22 magnesium 1 tab PO DAILY 07/26/19 06/14/22 miglitol 50 mg tablet 25 - 50 mg PO TID 07/26/19 06/14/22 naltrexone 50 mg tablet 50 mg PO BID 07/26/19 06/14/22 rosuvastatin 40 mg tablet 40 mg PO QPM 07/26/19 06/14/22 melatonin 5 mg capsule mg PO 07/01/21 06/14/22 semaglutide 0.25 mg or 0.5 mg (2 0.25 mg SUBCUT QWEEK 07/01/21 06/14/22 mg/1.5 mL) subcutaneous pen injector (Ozempic) topiramate 50 mg tablet 50 mg PO BID 07/01/21 06/14/22 ipratropium bromide 42 mcg (0.06 2 spray intranasal TID 06/14/22 06/14/22 %) nasal spray Previous Rx's Medication Instructions Recorded fluticasone furoate 50 1 inh inhalation DAILY #30 ea 07/11/22 mcg/actuation blister powder for inhalation (Arnuity Ellipta) Allergies Allergy/AdvReac Type Severity Reaction Status Date / Time levofloxacin [From Levaquin] Allergy Severe painful/itc Verified 06/14/22 15:09 hy Review of Systems Review of Systems ROS Unobtainable: All systems reviewed & are unremarkable except as noted in HPI and below Patient History Medical History Bilateral leg numbness Wears glasses Psoriasis Psoriatic arthritis Osteoarthritis Chronic cough Shoulder pain (~2018) Rubella Mumps Measles Chicken pox Heart palpitations Surgical History Anesthesia S/P LASIK surgery (~1999) History of surgery (~1998) History of section (~1983) History of bunionectomy (~1985) History of tonsillectomy (~1962) History of hysterectomy (~2003) Family History Father Hyperlipidemia Mother Stage 4 lung cancer Hyperlipidemia Melanoma Colorectal cancer Sister Prediabetes Hyperlipidemia Grandfather Stroke History of heart disease Grandmother History of heart disease Stroke Social History Smoking Status: Never smoker Smoking Status: Never smoker alcohol intake frequency: holidays/special occasions only Substance Use Type: does not use Exam Narrative Exam Narrative: GEN: well nourished, well appearing female, alert and oriented x 3, patient appears to be in mild distress. HEENT: Atraumatic, pupils are equal round reactive to light, extraocular movements are intact, nares are clear, TMs are clear with no fluid, there is no conjunctival pallor. Throat is clear without any exudates, erythema, tonsillar enlargement or uvular deviation Visual acuity: right [20/25], left [20/25] without correction. IOP: Right 16 mm Hg, Left 20 mm Hg General: no globe trauma Eyelids: normal inspection, eyelids everted for exam on without change. Conjunctiva/Sclera: normal inspection Corneas: normal inspection, examined with fluroscein on bilaterally, patient had some mild haziness over bilateral corneas but no abrasions, no punctate uptake and no scleral involvement. EOM: intact, no palsy/entrapment Pupils: PERRL, normal accomadation, pupil normal Anterior Chambers: normal inspection, no hypema Posterior: normal fundoscopic on bilaterally HEART: Regular rate and rhythm without murmur, clicks, rubs. LUNGS:Lungs clear to auscultation, no wheezes, rales, crackles, chest moves symmetrically ABD:bowel sounds normal, soft, non-tender, no guarding, rebound, rigidity, no masses noted, no hepatosplenomegaly :No CVA tenderness MSCL: Non-tender, no muscle atrophy, muscles strength 5/5 upper and lower extremities, full range of motion, normal gait NEURO:CN 2-12 intact, sensation normal, finger nose finger test normal, heel smith test normal, romberg normal SKIN: No rash, erythema or other skin changes Initial Vital Signs Initial Vital Signs: Vital Signs Temperature 98.2 F 03/22/23 15:25 Pulse Rate 67 03/22/23 15:25 Respiratory Rate 18 03/22/23 15:25 Blood Pressure 156/70 H 03/22/23 15:25 Pulse Oximetry 100 03/22/23 15:25 Oxygen Delivery Method Room Air 03/22/23 15:25 Course Orders Ordered: Discontinued Medications Fluorescein Sodium (Fluorescein 1 Mg Strip) 1 mg EYE-BOTH NOW ONE Stop: 03/22/23 18:18 Last Admin: 03/22/23 18:43 Dose: 1 mg Documented By: BS Proparacaine HCl (Proparacaine 0.5% Ophth Jeanne) 1 drops EYE-BOTH NOW ONE Stop: 03/22/23 18:18 Last Admin: 03/22/23 18:44 Dose: 1 drop Documented By: ELIGIO Vital Signs Vital signs: Vital Signs - 8 hr 03/22/23 15:25 Temperature 98.2 F Pulse Rate 67 Respiratory Rate 18 Blood Pressure 156/70 H Pulse Oximetry 100 Oxygen Delivery Method Room Air MDM - Eye Problem MDM Narrative Medical decision making narrative: 67-year-old female comes in with complaint of vision change it happened twice in the past week the 1st time she states it just felt different, the 2nd time she did some additional investigation covering her eyes noted her right lower I had sort of a white patch that resolved after about 3 minutes. Some mild discomfort in the posterior eye but no other changes. Her eye exam other than some mild haziness over both eyes which she is noted to have cataracts and maybe secondary to this was otherwise normal her pressures were appropriate. She is no pain with movement no signs of infection discussed with patient would like to have her follow up with Ophthalmology for rechecked tomorrow. Discharge Plan Departure Patient Disposition: Home Clinical Impression: Change in vision Activity Restrictions/Additional Instructions: Please follow-up with ophthalmology, call for an appointment tomorrow. Please call 1st thing. You may continue home medications as prescribed. Please return for new or sudden vision changes, severe eye pain, new redness, drainage, swelling or redness of the face, new numbness, tingling weakness difficulty with movement, speech or other new or concerning changes. Prescriptions: No Action Arnuity Ellipta 50 mcg/actuation blister with device 1 inh inhalation DAILY Qty: 30 11RF topiramate 50 mg tablet 50 mg PO BID Ozempic 0.25 mg or 0.5 mg(2 mg/1.5 mL) pen injector 0.25 mg SUBCUT QWEEK Rx Instructions: for 4 doses melatonin 5 mg capsule PO ipratropium bromide 42 mcg (0.06 %) spray,non-aerosol 2 spray intranasal TID Rx Instructions: administer into each nostril miglitol 50 mg tablet 25 - 50 mg PO TID Rx Instructions: before meals naltrexone 50 mg tablet 50 mg PO BID levothyroxine 75 mcg tablet 75 mcg PO DAILY estradiol [Marisa] 0.0375 mg/24 hr patch semiweekly 0.0375 mg topical DIRECTED Rx Instructions: apply 1 patch to the skin every 3 1/2 days. rosuvastatin 40 mg tablet 40 mg PO QPM estradiol 10 mcg tablet 10 mcg VAGINAL DIRECTED Vitamin B-12 1 tab PO DAILY magnesium 1 tab PO DAILY Referrals: Rodriguez Rodriguez MD [Physician] - Donald Barker MD [Primary Care Provider] - Stand Alone Forms: Patient Portal/API
[2023-03-22] MEDS: FLUORESCEIN 1 MG STRIP EYE-BOTH (18:43)
[2023-03-22] MEDS: PROPARACAINE 0.5% OPHTH SOL 1 DROPS EYE-BOTH (18:44)
[2023-03-22 18:45] VITALS: BP 157/89; PULSE 60; RESP 16; O2SAT 98
== END 2023-03-22 18:45 | disposition home or self-care (01) ==
PROVIDERS: Emergency Provider Emergency Medicine; PCP Family Medicine
DX: H53.9 Unspecified visual disturbance (principal)
CPT/HCPCS: 99282; 99283

== ENCOUNTER → 2023-03-27 10:06 | Outpatient (CLI) | payer MEDICARE, OTHER, SELFPAY ==
--- NOTE | 2023-03-27 | DI.MG.S_ITS ---
BILATERAL DIGITAL SCREENING MAMMOGRAM 3D/2D WITH CAD: 03/27/2023 CLINICAL: Routine screening. Family history of breast cancer. Comparison is made to exams dated: 03/25/2022 mammogram, 03/24/2021 mammogram - [facility], and 11/11/2019 mammogram - outside facility. There are scattered areas of fibroglandular density in both breasts (category b / 25%-50% glandular tissue). Current study was also evaluated with a Computer Aided Detection (CAD) system. No significant masses, calcifications, or other findings are seen in either breast. IMPRESSION: NEGATIVE There is no mammographic evidence of malignancy. A 1 year screening mammogram is recommended. Based on the Tyrer Cuzick model (a risk assessment model) the patient's lifetime risk is 5.4% and her 10 year risk is 2.7%. According to the ACR, ACS, and NCCN guidelines, an annual breast MRI exam along with mammogram is recommended if the patient's lifetime risk is 20% or greater. This exam was interpreted at Station ID: [id number]. NOTE: For mammograms, a report in lay terms will be sent to the patient. Approximately 15% of breast malignancies will not be visualized mammographically. In the management of a palpable breast mass, a negative mammogram must not discourage biopsy of a clinically suspicious lesion. Electronically Signed By: Nenita forrest/edwar:03/27/2023 23:52:00 letter sent: Normal Exam ACR BI-RADS Category 1: Negative 3341F
== END ==
PROVIDERS: PCP Family Medicine; Referring Provider Family Medicine; Visit Provider Family Medicine
DX: Z12.31 Encounter for screening mammogram for malignant neoplasm of breast (principal); Z80.3 Family history of malignant neoplasm of breast
CPT/HCPCS: 77063; 77067

== ENCOUNTER → 2023-04-04 10:46 | Outpatient (CLI) | payer MEDICARE, OTHER, SELFPAY ==
--- NOTE | 2023-04-04 10:48 | DI.CT.S_ITS ---
PROCEDURE: CT HEAD/BRAIN WO CON INDICATIONS: eye pain, visual changes TECHNIQUE: Noncontrast 4.5 mm thick angled axial sections acquired from the foramen magnum to the vertex, with coronal and sagittal reformats. For radiation dose reduction, the following was used: automated exposure control, adjustment of mA and/or kV according to patient size. COMPARISON: None. FINDINGS: Image quality: Mild streak artifact can be seen through the skull base. CSF spaces: Basal cisterns are patent. No extra-axial fluid collections. The ventricles are symmetric in size and shape. Brain: No intracranial bleeds or masses. There is cerebral volume loss for age, with resultant ventricular and sulcal prominence. There are periventricular and deep white matter chronic small vessel ischemic changes. There is intracranial internal carotid artery atherosclerosis. Skull and face: Calvarium and visualized facial bones appear intact, without suspicious lesions. In this patient with this given history, scrutiny is given to the orbits. To the limits of this standard protocol, noncontrast study, no significant abnormality of the orbits or globes can be seen. Sinuses: Visualized sinuses and mastoids are clear. IMPRESSION: No imaging explanation is found for this patient's presenting symptoms. Dictated by: Maksim Walker M.D. on 04/04/2023 at 10:51 Approved by: Maksim Walker M.D. on 04/04/2023 at 10:53
== END ==
PROVIDERS: PCP Family Medicine; Referring Provider Family Medicine; Visit Provider Family Medicine
DX: H53.9 Unspecified visual disturbance (principal); R51.9 Headache, unspecified
CPT/HCPCS: 70450

== ENCOUNTER → 2023-05-24 09:41 | Outpatient (CLI) | payer MEDICARE, OTHER, SELFPAY ==
--- NOTE | 2023-05-24 09:43 | DI.RAD.S_ITS ---
Bone Density Report Name: EBONI SAPP Age: 68 Sex: Female Ethnicity: White Date of : 1955 Indication: postmenopausal; screening for osteoporosis; Referring Provider: KENDELL GUTIERREZ Study: Bone densitometry was performed. Exam Date: May 24, 2023 Accession number: [id number] Bone Density: Region BMD T-score Z-score Classification AP Spine(L1, L2, L3) 1.014 0.0 1.8 Normal Femoral Neck (Left) 0.572 -2.5 -0.9 Osteoporosis Total Hip (Left) 0.848 -0.8 0.6 Normal Femoral Neck (Right) 0.710 -1.3 0.4 Osteopenia Total Hip (Right) 0.844 -0.8 0.5 Normal Total Hip Mean 0.846 -0.8 0.6 Normal World Health Organization criteria for BMD impression classify patients as: Normal (T-score at or above -1.0), Osteopenia (T-score between -1.0 and -2.5), or Osteoporosis (T-score at or below -2.5). 10-year Fracture Risk: FRAX not reported because: Some T-score for Spine Total or Hip Total or Femoral Neck at or below -2.5 Impression: The patient has osteoporosis, based on the Left Femoral Neck T-score. Discussion: INCREASED RISK OF FRACTURE. BONE DENSITY IS UNDESIRABLY LOW AT ONE OR MORE SKELETAL SITES, CONSISTENT WITH POSTMENOPAUSAL OSTEOPOROSIS. This patient's lowest T-score meets the World Health Organization's (WHO) criteria for osteoporosis at one or more sites (T-score -2.5 or below). In untreated patients, the risk of osteoporotic fracture increases approximately two-fold for each 1.0 SD decrease in T-score. Low bone density is not the only risk factor for fracture; also consider factors such as patient's age, frailty or poor health, risk of falling, risk of injury, previous osteoporotic fracture, family history of osteoporosis, cigarette smoking, low body weight, etc. Not everyone with low bone mineral density has osteoporosis; osteomalacia and other metabolic bone disorders should also be considered. Patients who have osteoporosis should be evaluated for specific diseases and conditions (secondary causes) that may cause or contribute to bone loss. The [place] [employer]ocrinologists (AACE) and National Osteoporosis Foundation (NOF) recommend pharmacologic intervention for all postmenopausal women whose T-score is in this range. The patient should follow a healthful lifestyle (good nutrition with adequate calcium and vitamin D, and appropriate weight-bearing exercise). Follow-Up: Consider a repeat BMD and Vertebral Fracture Assessment (VFA) exam in 2 years or sooner if medically necessary, to reassess this patient's status. Reported by: TANI BOOTH M.D. on 05/24/2023 10:20:00 AM.
== END ==
PROVIDERS: PCP Family Medicine; Referring Provider Family Medicine; Visit Provider Family Medicine
DX: M81.0 Age-related osteoporosis without current pathological fracture; N95.9 Unspecified menopausal and perimenopausal disorder; Z82.62 Family history of osteoporosis
CPT/HCPCS: 77080

== ENCOUNTER → 2024-01-17 07:24 | Outpatient (CLI) | payer MEDICARE, OTHER, SELFPAY ==
--- NOTE | 2024-01-17 07:26 | DI.US.S_ITS ---
PROCEDURE: US ABDOMEN LIMITED INDICATIONS: RUQ DISCOMFORT / GI SYMPTOMS TECHNIQUE: Real-time scanning was performed of the abdominal and retroperitoneal organs, with image documentation. COMPARISON: None. FINDINGS: Liver: Liver is normal in size and homogeneous in echotexture. Gallbladder: No gallstones. No wall thickening. No pericholecystic edema. Negative sonographic Euceda's sign. Biliary ducts: Intrahepatic bile ducts are non-dilated. Extrahepatic bile duct caliber measures 1 mm. Normal is 6-7 mm or less in diameter, or 10 mm or less post-cholecystectomy. Pancreas: Visualized portions of the pancreas are sonographically normal. Miscellaneous: No free abdominal fluid. IMPRESSION: No abnormalities are identified. Normal appearance of the gallbladder. Dictated by: Kodi Gatica M.D. on 01/17/2024 at 15:25 Approved by: Kodi Gatica M.D. on 01/17/2024 at 15:26
== END ==
PROVIDERS: PCP Family Medicine; Referring Provider Family Medicine Sports Medicine; Visit Provider Family Medicine Sports Medicine
DX: R10.11 Right upper quadrant pain (principal); R19.8 Other specified symptoms and signs involving the digestive system and abdomen
CPT/HCPCS: 76705

== ENCOUNTER → 2024-03-28 | Outpatient (CLI) | payer MEDICARE, OTHER, SELFPAY ==
--- NOTE | 2024-03-28 15:52 | DI.MG.S_ITS ---
BILATERAL DIGITAL SCREENING MAMMOGRAM 3D/2D WITH CAD: 03/28/2024 CLINICAL: Routine screening. Family history of breast cancer. Comparison is made to exams dated: 03/27/2023 mammogram, 03/25/2022 mammogram, and 03/24/2021 mammogram - [facility]. There are scattered areas of fibroglandular density (category b / 25%-50% glandular tissue). Current study was also evaluated with a Computer Aided Detection (CAD) system. No significant masses, calcifications, or other findings are seen in either breast. There has been no significant interval change. IMPRESSION: NEGATIVE There is no mammographic evidence of malignancy. A 1 year screening mammogram is recommended. Based on the Tyrer Cuzick model (a risk assessment model) the patient's lifetime risk is 5.1% and her 10 year risk is 2.7%. According to the ACR, ACS, and NCCN guidelines, an annual breast MRI exam along with mammogram is recommended if the patient's lifetime risk is 20% or greater. This exam was interpreted at Station ID: [id number]. NOTE: For mammograms, a report in lay terms will be sent to the patient. Approximately 15% of breast malignancies will not be visualized mammographically. In the management of a palpable breast mass, a negative mammogram must not discourage biopsy of a clinically suspicious lesion. Electronically Signed By: Peewee lazcano/edwar:04/16/2024 14:32:58 copy to: Gretta Wellington [facility] letter sent: Normal Exam ACR BI-RADS Category 1: Negative
== END ==
PROVIDERS: PCP Family Medicine; Referring Provider Family Medicine; Visit Provider Family Medicine
DX: Z12.31 Encounter for screening mammogram for malignant neoplasm of breast (principal); Z80.3 Family history of malignant neoplasm of breast
CPT/HCPCS: 77063; 77067

== ENCOUNTER → 2025-05-01 15:49 | Outpatient (CLI) | payer MEDICARE, OTHER, SELFPAY ==
--- NOTE | 2025-05-01 15:51 | DI.MG.S_ITS ---
MM screening mammo BI: 05/01/2025. BI-RADS: 1 CLINICAL: 69-year old female for bilateral screening mammogram. Tyrer-Cuzick lifetime risk of 3.6%. No personal or first-degree family history of breast cancer. PRIOR EXAMS 03/28/2024, 03/27/2023, 03/25/2022, 12/10/2021, MAMMOGRAPHY TECHNIQUE: 2D and 3D (tomosynthesis) digital mammographic views obtained, with additional images as needed for full coverage. Current study was also evaluated with a Computer Aided Detection (CAD) system. DENSITY B. There are scattered areas of fibroglandular density. MAMMOGRAPHY FINDINGS Bilateral: No suspicious mass, asymmetry, microcalcification, or other abnormality seen. IMPRESSION: * No evidence of malignancy. RECOMMENDATIONS Bilateral * Annual screening mammography. OVERALL ASSESSMENT CATEGORY BI-RADS-1: Negative. The [employer] recommends annual screening mammography beginning at age 40 for women with average risk of breast cancer. ELECTRONICALLY SIGNED: Ryan Peter M.D. on 05/02/2025 at 07:25:24 AM PT Interpreting Station ID: [id number]
== END ==
PROVIDERS: PCP Family Medicine; Referring Provider Family Medicine; Visit Provider Family Medicine
DX: Z12.31 Encounter for screening mammogram for malignant neoplasm of breast (principal)
CPT/HCPCS: 77063; 77067